=== PATIENT | female | born 2000 | race Caucasian/White ===

== ENCOUNTER 2022-05-09 10:23 | Inpatient (IN) | payer MEDICAID, OTHER ==
[~2022-05-09] VITALS: Ht 154.9 cm; Wt 60.4 kg
[2022-05-09 11:00] LABS: Basophils # (auto) 0 10 ^3/uL (0-0.2); Basophils % (auto) 0.3 % (0.0-2.0); Eosinophils # (auto) 0 10 ^3/uL (0-0.8); Eosinophils % (auto) 0.3 % (0.0-7.0); Hematocrit 40.9 % (36.0-46.0); Hemoglobin 13.9 g/dL (12.2-16.2); Lymphocytes # (auto) 1.1 10 ^3/uL (0.4-5.4); Lymphocytes % (auto) 10.4 % (10.0-50.0); Mean Corpuscular Hemoglobin 30.4 pg (28.0-32.0); Mean Corpuscular Volume 89.2 fL (80.0-100.0); Monocytes # (auto) 0.5 10 ^3/uL (0-1.3); Monocytes % (auto) 4.3 % (0.0-12.0); Neutrophils # (auto) 9.2 10 ^3/uL (1.6-8.6); Neutrophils % (auto) 84.7 % (37.0-80.0); Nucleated Red Blood Cells % 0.1 %; Red Blood Cells 4.58 10^6/uL (4.0-5.20); Red Cell Distribution Width 13.5 % (11.8-14.3); White Blood Cell 10.9 10^3/uL (4.4-10.8)
[2022-05-09] MEDS ORDERED: SODIUM CHLORIDE 0.9% 1,000 ML IV ONE (11:00)
[2022-05-09] MEDS ORDERED: ONDANSETRON HCL 4 MG/2 ML VIAL IV ONE (11:00)
[2022-05-09 11:17] LABS: Albumin 4.3 g/dL (3.4-5.0); Calcium 9.4 mg/dL (8.5-10.1); Potassium 3.8 mmol/L (3.5-5.1)
[2022-05-09 11:21] LABS: BUN/Creatinine Ratio 13.8; Bilirubin, Total 0.9 mg/dL (0.2-1.0); Total Protein 8.7 g/dL (6.4-8.2)
[2022-05-09] MEDS ORDERED: KETOROLAC TROMETH 30 MG/ML 1ML VIAL IV ONE (12:15)
[2022-05-09 13:55] LABS: Urine Bacteria NONE SEEN /hpf (None Seen); Urine Blood 2+ /uL (Negative); Urine Mucus FEW (None Seen); Urine Specific Gravity 1.025 (1.001-1.035); Urine WBC 1 /hpf (0 - 5)
[2022-05-09] MEDS ORDERED: metroNIDAZOLE 500MG/100ML 100 ML IV ONE (14:45)
[2022-05-09] MEDS ORDERED: cefTRIAXone 1GM/50ML D5W 50 ML IV ONE (14:45)
[2022-05-09] MEDS ORDERED: ONDANSETRON HCL 4 MG/2 ML VIAL IV PRN (15:30)
[2022-05-09] MEDS ORDERED: HYDROcodone-ACET 5/325MG TAB PO PRN (15:30)
[2022-05-09] MEDS ORDERED: PANTOPRAZOLE 40 MG/10 ML VIAL INJ IV ONE (15:30)
[2022-05-09] MEDS ORDERED: KETOROLAC TROMETH 30 MG/ML 1ML VIAL IV PRN (15:30)
[2022-05-09] MEDS ORDERED: ACETAMINOPHEN 325 MG TAB PO PRN (15:30)
[2022-05-09] MEDS: SODIUM CHLORIDE 0.9% 1,000 ML IV SCH (21:32)
[2022-05-09] MEDS: metroNIDAZOLE 500MG/100ML 100 ML IV SCH (22:45)
[2022-05-09 23:55] VITALS: BP 111/71
[2022-05-10 00:38] VITALS: BP 111/71
[2022-05-10] MEDS: SODIUM CHLORIDE 0.9% 1,000 ML IV SCH ×3 (03:21→14:00)
[2022-05-10 05:00] VITALS: BP 102/59
[2022-05-10] MEDS: metroNIDAZOLE 500MG/100ML 100 ML IV SCH ×3 (06:27→21:33)
[2022-05-10 06:59] LABS: Basophils # (auto) 0 10 ^3/uL (0-0.2); Basophils % (auto) 0.4 % (0.0-2.0); Eosinophils # (auto) 0.1 10 ^3/uL (0-0.8); Eosinophils % (auto) 0.6 % (0.0-7.0); Hematocrit 33.4 % (36.0-46.0); Hemoglobin 11.7 g/dL (12.2-16.2); Lymphocytes # (auto) 1.7 10 ^3/uL (0.4-5.4); Mean Corpuscular Hemoglobin 31.3 pg (28.0-32.0); Mean Corpuscular Hgb Conc. 35.1 g/dL (32.0-36.0); Mean Corpuscular Volume 89.1 fL (80.0-100.0); Monocytes # (auto) 0.9 10 ^3/uL (0-1.3); Monocytes % (auto) 8.7 % (0.0-12.0); Neutrophils # (auto) 7.4 10 ^3/uL (1.6-8.6); Neutrophils % (auto) 73.3 % (37.0-80.0); Red Blood Cells 3.75 10^6/uL (4.0-5.20); Red Cell Distribution Width 13.3 % (11.8-14.3); White Blood Cell 10.1 10^3/uL (4.4-10.8)
[2022-05-10 07:01] LABS: Albumin 3.1 g/dL (3.4-5.0); Calcium 8.4 mg/dL (8.5-10.1); Potassium 3.7 mmol/L (3.5-5.1)
[2022-05-10 07:04] LABS: BUN/Creatinine Ratio 19.6; Bilirubin, Total 0.6 mg/dL (0.2-1.0); Total Protein 6.3 g/dL (6.4-8.2)
[2022-05-10 09:00] VITALS: BP 94/59
[2022-05-10] MEDS ORDERED: ENOXAPARIN SOD 40 MG/0.4 ML SYRINGE SC SCH (10:00)
[2022-05-10] MEDS: PANTOPRAZOLE 40 MG/10 ML VIAL INJ IV SCH (10:21)
[2022-05-10] MEDS: cefTRIAXone 1GM/50ML D5W 50 ML IV SCH (10:22)
[2022-05-10 13:00] VITALS: BP 101/57
[2022-05-10 17:00] VITALS: BP 96/56
[2022-05-10 22:00] VITALS: BP 106/69
[2022-05-11 03:49] LABS: Urine Bacteria FEW /hpf (None Seen); Urine WBC 2 /hpf (0 - 5)
[2022-05-11 03:53] LABS: Urine Blood Trace /uL (Negative); Urine Specific Gravity 1.015 (1.001-1.035)
[2022-05-11 05:00] VITALS: BP 107/65
[2022-05-11] MEDS: SODIUM CHLORIDE 0.9% 1,000 ML IV SCH ×2 (05:40→10:00)
[2022-05-11] MEDS: metroNIDAZOLE 500MG/100ML 100 ML IV SCH ×2 (05:40→14:25)
[2022-05-11 09:00] VITALS: BP 99/63
[2022-05-11] MEDS: cefTRIAXone 1GM/50ML D5W 50 ML IV SCH (10:44)
[2022-05-11] MEDS: PANTOPRAZOLE 40 MG/10 ML VIAL INJ IV SCH (10:44)
[2022-05-11 13:16] VITALS: BP 99/63
== END 2022-05-11 14:00 | disposition home or self-care (01) | DRG 249 ==
LOC: ER 10:23 → OVERFLOW 15:32 → WEST WING 23:33
PROVIDERS: ADMIT Nurse Practitioner Family; ATTEND Internal Medicine
DX: A08.4 Viral intestinal infection, unspecified (principal); K82.8 Other specified diseases of gallbladder; Z20.822 Contact with and (suspected) exposure to COVID-19
CPT/HCPCS: 36415; 74176; 76705; 80053; 81001; 83605; 83690; 84702; 85025; 85652; 86141; 87040; 87426; 96361; 96365; 96367; 96375; C9113; G0378; J0696; J1885; J2405; J3490